=== PATIENT | female | born 1945 | race Caucasian/White ===

== ENCOUNTER 2017-07-29 13:01 | Outpatient (CLI) | payer MEDICARE | END 2017-07-29 13:02 | disposition home or self-care (01) | LOC: BICMAMMO 13:01 | PROVIDERS: ATTEND Family Medicine | DX: Z12.31 Encounter for screening mammogram for malignant neoplasm of breast (principal); Z13.820 Encounter for screening for osteoporosis; M81.8 Other osteoporosis without current pathological fracture; Z80.3 Family history of malignant neoplasm of breast | CPT/HCPCS: 77063; 77067; 77080 ==

== ENCOUNTER 2018-08-13 09:56 | Outpatient (CLI) | payer MEDICARE ==
--- NOTE | 2018-08-13 11:06 | BD ---
FExam: Bone densitometry using DEXA HISTORY: Screening. Postmenopausal osteoporosis FINDINGS: EXAM: DEXA bone density examination HISTORY: 72-year-old postmenopausal female for screening COMPARISON: 07/27/2004 FINDINGS: L1--bone mineral density 0.585 g/sq cm; T score -3.7 L2--bone mineral density 0.606 g/sq cm; T score -3.8 L3--bone mineral density 0.588 g/sq cm; T score -4.5 L4--bone mineral density 0.468 g/sq cm; T score -5.4 Total L1-L4--bone mineral density 0.556 g/sq cm; T score -2.3 Left femoral neck--bone mineral density0.461; T score -3.5 Total proximal left femur--bone mineral density 0.575; T score -3.0 There has been an interval reduction of 32.8% in the BMD of the lumbar spine and a reduction of 13.5% in the BMD of the proximal femur since the previous study of 07/27/2004. IMPRESSION: Osteoporosis
--- NOTE | 2018-08-14 11:56 | MMO ---
Bilateral MAMMO Bilat Screen [facility]. CLINICAL HISTORY: Patient is 72 years old and is seen for screening. The patient has the following family history of breast cancer: mother, at age 80. The patient has no personal history of cancer. VIEWS: The views performed were: bilateral craniocaudal with tomosynthesis and bilateral mediolateral oblique with tomosynthesis. FILMS COMPARED: The present examination has been compared to prior imaging studies performed at [facility] on 06/04/2002, 07/15/2003, 07/27/2004, 08/09/2005, 10/03/2006, 10/09/2007, 10/14/2008, 10/19/2009, 12/11/2010, 12/26/2011, 03/15/2013, 04/04/2014, 04/05/2015, 06/05/2016 and 07/29/2017. MAMMOGRAM FINDINGS: There are stable benign appearing calcifications seen in both breasts. There are no suspicious masses, suspicious calcifications, or new areas of architectural distortion. IMPRESSION: THERE IS NO MAMMOGRAPHIC EVIDENCE OF MALIGNANCY. A ROUTINE FOLLOW-UP MAMMOGRAM IN 1 YEAR IS RECOMMENDED. THE RESULTS OF THIS EXAM WERE SENT TO THE PATIENT. ACR BI-RADS Category 2 - Benign finding MAMMOGRAPHY NOTE: 1. A negative mammogram report should not delay a biopsy if a dominant of clinically suspicious mass is present. 2. Approximately 10% to 15% of breast cancers are not detected by mammography. 3. Adenosis and dense breasts may obscure an underlying neoplasm.
== END 2018-08-13 09:57 | disposition home or self-care (01) ==
LOC: BICMAMMO 09:56
PROVIDERS: ATTEND Physician Assistant
DX: Z12.31 Encounter for screening mammogram for malignant neoplasm of breast (principal); M81.0 Age-related osteoporosis without current pathological fracture; Z80.3 Family history of malignant neoplasm of breast
CPT/HCPCS: 77063; 77067; 77080

== ENCOUNTER 2019-11-01 08:45 | Outpatient (CLI) | payer MEDICARE ==
--- NOTE | 2019-11-01 09:14 | MMO ---
Bilateral MAMMO Bilat Screen [facility]. CLINICAL HISTORY: Patient is 73 years old and is seen for screening. The patient has the following family history of breast cancer: mother, at age 80. The patient has no personal history of cancer. VIEWS: The views performed were: bilateral craniocaudal with tomosynthesis and bilateral mediolateral oblique with tomosynthesis. FILMS COMPARED: The present examination has been compared to prior imaging studies performed at [facility] on 04/05/2015, 06/05/2016, 07/29/2017 and 08/13/2018. This study has been interpreted with the assistance of computer-aided detection. MAMMOGRAM FINDINGS: The breasts are heterogeneously dense, which could obscure a lesion on mammography. There are no suspicious masses, suspicious calcifications, or new areas of architectural distortion. IMPRESSION: THERE IS NO MAMMOGRAPHIC EVIDENCE OF MALIGNANCY. A ROUTINE FOLLOW-UP MAMMOGRAM IN 1 YEAR IS RECOMMENDED. THE RESULTS OF THIS EXAM WERE SENT TO THE PATIENT. ACR BI-RADS Category 1 - Negative MAMMOGRAPHY NOTE: 1. A negative mammogram report should not delay a biopsy if a dominant of clinically suspicious mass is present. 2. Approximately 10% to 15% of breast cancers are not detected by mammography. 3. Adenosis and dense breasts may obscure an underlying neoplasm. Reported by: IMAN ESCOBEDO MD Electonically Signed: [id number]
--- NOTE | 2019-11-01 10:20 | BD ---
BONE DENSITOMETRY USING DEXA: Date: 11/01/2019 HISTORY: Osteoporosis. FINDINGS: Lumbar Spine: BMD (g/cm2) L1 0.568 T-Score: -3.8 Z-Score: -1.9 L2 0.605 T-Score: -3.8 Z-Score: -1.7 L3 0.588 T-Score: -4.5 Z-Score: -2.2 L4 0.482 T-Score: -5.3 Z-Score: -2.9 L1-L4 0.555 T-Score: -4.5 Z-Score: -2.3 Femoral Neck: 0.430 T-Score: -3.8 Z-Score: -1.9 Total Femur: 0.470 T-Score: -3.9 Z-Score: -2.3 There has been interval reduction of 18.2% in the bone mineral density of the proximal femur since . IMPRESSION: Osteoporosis. POS: KAYLA
== END 2019-11-01 08:46 | disposition home or self-care (01) ==
LOC: BICMAMMO 08:45
PROVIDERS: ATTEND Physician Assistant
DX: Z12.31 Encounter for screening mammogram for malignant neoplasm of breast (principal); M81.0 Age-related osteoporosis without current pathological fracture; Z80.3 Family history of malignant neoplasm of breast
CPT/HCPCS: 77063; 77067; 77080

== ENCOUNTER 2023-06-05 11:21 | Outpatient (CLI) | payer MEDICARE | END 2023-06-05 11:22 | disposition home or self-care (01) | LOC: SCSRAD 11:21 | PROVIDERS: ATTEND Family Medicine | DX: S29.9XXA Unspecified injury of thorax, initial encounter (principal); R91.8 Other nonspecific abnormal finding of lung field ==